=== PATIENT | male | born 1935 | race Caucasian/White ===

== ENCOUNTER 2018-12-11 05:20 | Inpatient (IN) | payer MEDICARE, BC ==
[2018-12-10 16:28] VITALS: BMI 20.4
[2018-12-11] VITALS (28 sets, daily range): BP systolic 98–152; BP diastolic 46–72; PULSE 63–77; RESP 11–20; Ht 184.2 cm; Wt 66.6 kg
[~2018-12-11] VITALS: Ht 184.2 cm; Wt 66.6 kg
[~2018-12-11 05:20] MED LIST: SIMV5TAB14 PO; TRAZ-111 PO
--- NOTE | 2018-12-11 05:31 | HPN ---
Date/Time of Note Date/Time of Note DATE: 12/11/18 TIME: 05:31 Interval H&P Admission Note Pt. seen H&P reviewed: No system changes URSZULA JUSTIN MD Dec 11, 2018 05:31
--- NOTE | 2018-12-11 05:35 | OPR ---
Date/Time of Note Date/Time of Note DATE: 12/11/18 TIME: 05:31 Operative Report Procedure Date: Dec 11, 2018 Preoperative Diagnosis Right shoulder rotator cuff tear arthropathy Postoperative Diagnosis 1. Right shoulder rotator cuff tear arthropathy 2. Right shoulder acromioclavicular joint arthritis 3. Right shoulder secondary arthritis Operation/Procedure Performed 1. Right reverse total shoulder replacement 2. Right open distal clavicle excision 3. Right shoulder injection of PRP Surgeon see signature line Unit Aide Brayan Jain PA-C Second Unit Aide: KITA ROME Anesthesia Type: general Estimated Blood Loss: 100 - 150 ml's Transfusion none Specimen None Grafts/Implants See operative note Complications none Pt Condition Post Procedure: stable Disposition: PACU Procedure Description MECHANICAL ENGINEERING PROFESSOR SURGEON: Brayan Jain PA-C was asked to be present for this case at my request. Assistance was necessary as a result of the highly technical nature of this operation. When performing an open total shoulder replacement, it is critical to have a trained assistant to the ceo who is an expert in handling the extremity and assisting the surgeon in tasks such as manipulation of the arm, protection of the neurovascular structures and positioning the implants. This assistance cannot be performed by a earth science technician, as it is considered an integral part of the procedure and the assistant to the ceo should be compensated for their time. PROCEDURE IN DETAIL: Following the administration of general anesthesia supplemented with a peripheral nerve block for postoperative pain control, the patient was examined under anesthesia. The antecubital fossa was then prepped and 60 cc of blood were aspirated. The blood was then subsequently given to the textile machinery sales representative from the company to prepare the PRP solution. Examination of the [] shoulder revealed very significant stiffness including a forward flexion of about 100 degrees and abduction of 80 degrees maximal external rotation 60 degrees with severe crepitus. There was anteroposterior escape of the humeral head, also. The patient was then placed in the beach chair position. Sterile prep and drape was then undertaken. An extended deltopectoral incision was then carried through the interval exposing the conjoined tendon and retracting it medially. The superior aspect of the joint was then evaluated. Significant osteophytes were noted in the acromioclavicular joint. The acromioclavicular joint capsule was then entered and the distal clavicle skeletonized for a distance of 10 mm. Severe arthritic changes were noted. An osteotome was then used to resect 10 mm of the distal clavicle. Good decompression was confirmed. The AC joint was irrigated and closed using a #2 interrupted suture. The subscapularis was noted to be partially disrupted superiorly. Severe arthritic changes were noted with very large peripheral osteophytes. The superior rotator cuff was torn and retracted. The biceps tendon was tenodesed to the bicipital groove after finding significant degenerative changes. A humeral head osteotomy was then created in the appropriate degree of version and inclination. The humerus was retracted and the glenoid was exposed. Peripheral osteophytes were removed and a complete capsulectomy performed. The central canal of the glenoid was then entered and prepared for a size standard Depuy baseplate. A standard Depuy baseplate was then applied with four peripheral screws and solid fixation. A 38 mm glenosphere was then applied, with solid fixation. The humerus was then reamed and prepared for a 14 mm humeral component with a standard metaphyseal component with a 9 mm liner. The humeral canal was irrigated and the PRP solution was implanted within the humeral canal. The actual components were implanted with solid fixation. The arm was taken through full range of motion with no evident instability. The joint was then thoroughly irrigated, the deep tissues were approximated using #1 suture followed by closure of the deep layer using 2-0 Monocryl. The skin was closed using 4-0 Monocryl suture, and a Prenio dressing. An Ultrasling was then applied. The patient was awakened and transported to the recovery room in stable condition. Estimated blood loss for this procedure was 150 cc. Radiographs will be obtained in the recovery room. URSZULA JUSTIN MD Dec 11, 2018 05:35
--- NOTE | 2018-12-11 05:46 | PDOCDIS ---
Discharge Instructions DIAGNOSIS Discharge Diagnosis Rotator cuff tear arthropathy CONDITION [id number] Patient Condition: Jivww4i Good HOME CARE INSTRUCTIONS: [id number] Diet Instructions: Tshwi2y Regular ACTIVITY: [id number] Activity Restrictions: Qcczo7s Slowly Increase Activity Keep Limb Elevated [id number] Bathing Restrictions: Mfgoo2a Shower FOLLOW UP/APPOINTMENTS Follow-up Plan 2 weeks in the office SCHOOL/WORK RELEASE May return to School/Work with: With Restrictions School/Work Release Comment: 5 pound tabletop usage for 6 weeks URSZULA JUSTIN MD Dec 11, 2018 05:46
[2018-12-11] MEDS ORDERED: TRANEXAMIC ACID 1GM/100ML(PMX) 100 ML IVPB SCH (06:00)
[2018-12-11] MEDS ORDERED: GABAPENTIN 300 MG CAP PO SCH ×2 (06:00→21:00)
[2018-12-11] MEDS ORDERED: DEXAMETHASONE 1 MG TAB PO SCH (06:00)
[2018-12-11] MEDS ORDERED: BUPIVACAINE 0.5% (SDV) 30 ML, morphine SULFATE (PF) 8 MG, EPINEPHrine 0.3 MG, KETOROLAC... IRR SCH ×7 (06:00)
[2018-12-11] MEDS ORDERED: CEFAZOLIN 2 GM/50 ML (PMX) 50 ML IVPB SCH (06:00)
[2018-12-11] MEDS: LACTATED RINGER'S 1,000 ML IV* SCH (06:06)
--- NOTE | 2018-12-11 06:26 | PREOPHP ---
DATE OF ADMISSION: 12/11/2018 HISTORY OF PRESENT ILLNESS: The patient is an 83-year-old male, admitted on 12/11/2018 for right total shoulder replacement by Dr. Urszula Glez. This gentleman has a long history of right shoulder pain. He has been seen in the past by other orth opedist, MRI reveals glenohumeral arthritis, he was treated with physical therapy, cortisone injectio ns, topical gel with no significant improvement. 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 PAST MEDICAL HISTORY: The patient has a history of hypercholesterolemia treated with a statin, and a denocarcinoma of the lung, treated with right upper lobectomy several years ago. The patient also avalos d a Dupuytren's contracture surgery and a remote left-sided brachial plexus injury. MEDICATIONS: 1. Atorvastatin. 2. Baby aspirin, which has been stopped. 3. Trazodone at bedtime. SOCIAL HISTORY: The patient has a past history of cigarette smoking, but quit many years ago and sam garcias 1 glass of wine several times weekly. No recreational drugs. FAMILY HISTORY: Noncontributory. REVIEW OF SYSTEMS: The patient has had an extensive recent workup for weight loss including CAT scan s, blood test, colonoscopy. No cause has been found. He denies headaches, dizzy spells, fainting, d ouble vision, blurring of vision, tinnitus, trouble swallowing. He has some decreased exercise dotty ance because of his prior lung surgery. He denies chest pain, palpitations, PND, orthopnea or edema. No nausea, vomiting, diarrhea, change in bowel habits. No bleeding. Nocturia x1. No significant dermatological or neurological problems. PHYSICAL EXAMINATION: GENERAL: The patient is a well-developed, thin male in no acute distress. HEENT: Unremarkable. LUNGS: Dullness at the right base to percussion. VITAL SIGNS: The patient's weight is stable at 147. CHEST: Lung schroeder are clear. HEART: Regular sinus rhythm, I/ systolic murmur along the left sternal border. ABDOMEN: No organomegaly or masses. RECTAL: Shows a 1+ prostate. Stool negative for occult blood. NEUROLOGIC: Physiologic. SKIN: No rashes. MUSCULOSKELETAL: Decreased range of motion and pain in the right shoulder. IMPRESSION: 1. Arthritis, right shoulder, medically cleared for proposed surgery. 2. Remote history of lung cancer. PLAN: The patient is medically cleared for the above procedure. LAUREN DE LA VEGA MD DICTATING FOR URSZULA HOBBS Dictated By: URSZULA GLEZ MD CG/NTS Conf#: [id number] DID#: [id number] CC: URSZULA GLEZ MD;*EndCC*
[2018-12-11] MEDS ORDERED: POLYMYXIN/BACITRACIN 1L IRRIG ONE (06:44)
[2018-12-11] MEDS ORDERED: CA CHLORIDE 10% 10 ML SYRINGE ONE (06:44)
[2018-12-11] MEDS ORDERED: THROMBIN 5000 UNIT VIAL ONE (06:44)
--- NOTE | 2018-12-11 06:55 | PREAC ---
Date/Time of Note Date/Time of Note DATE: 12/11/18 TIME: 06:53 Anesthesia Eval and Record Evaluation Time Pre-Procedure Interview DATE: 12/11/18 TIME: 06:53 Age 83 Sex male NPO: 8 hrs Preoperative diagnosis right shoulder pain Planned procedure R total shoulder replacement Past Medical History Past Medical History: Includes Cardio: Dyslipidemia Pulm: Smoking Hx, Other (RULobectomy for CA, now free and 40 years ago) Psych: Anxiety Surgery & Anesthesia Issues No known issue Meds Anticoagulation: No Beta Antonio within 24 hr: No Reason Beta Antonio not given: Pt. not on B-Antonio Reported Medications Simvastatin* (Simvastatin*) 5 Mg Tablet, 20 MG PO QHS, #30 TAB 12/10/18 Trazodone Hcl* (Trazodone Hcl*) 50 Mg Tablet, 25 MG PO QHS, #30 TAB 12/10/18 Current Medications Cefazolin Sodium/ Dextrose 50 ml @ 100 mls/hr PRE-OP IVPB ; Start 12/11/18 at 06:00; Stop 12/11/18 at 16:00 Tranexamic Acid 100 ml @ 200 mls/hr Pre-op IVPB ; Start 12/11/18 at 06:00; Stop 12/11/18 at 16:00 Bupivacaine HCl/ Morphine Sulfate/ Epinephrine/ Ketorolac Tromethamine/ Clonidine/Sodium Chloride/ Vancomycin HCl INTRA-OP IRR ; Start 12/11/18 at 06:00; Stop 12/11/18 at 16:00 Dexamethasone (Decadron) 2 mg PREOP PO Last administered on 12/11/18at 06:06; Admin Dose 2 MG; Start 12/11/18 at 06:00; Stop 12/11/18 at 16:00 Gabapentin (Neurontin) 300 mg ONCE PO Last administered on 12/11/18at 06:06; Admin Dose 300 MG; Start 12/11/18 at 06:00; Stop 12/11/18 at 16:00 Lactated Ringer's 1,000 ml @ 20 mls/hr Q24H IV* Last administered on 12/11/18at 06:06; Admin Dose 20 MLS/HR; Start 12/11/18 at 06:00; Stop 12/13/18 at 07:59 Meds reviewed: Yes Allergies Coded Allergies: No Known Allergy (Unverified , 12/11/18) Allergies Reviewed: Yes Labs/Studies Labs Reviewed: Reviewed by anesthesiologist test: N/A Studies: ECG, CXR Pre-procedure Exam Last vitals Vital Signs Date Temp Pulse Resp B/P (MAP) Pulse Ox O2 O2 Flow FiO2 Time Delivery Rate 12/11/18 97.3 77 18 152/72 99 Room Air 06:09 (98) Airway: Adequate mouth opening, Adequate thyromental dist Mallampati: Mallampati III Teeth: Normal Lung: Normal Heart: Normal ASA Physical Status ASA physical status: 3 Emergency: None Planned Anesthetic General/MAC: ETT Planned Pain Management Single shot nerve block, Parenteral pain med, Local by surgeon Pre-operative Attestations Prior to commencing anesthesia and surgery, the patient was re-evaluated, there was verification of: *The patient's identity *The results of appropriate recent lab work and preoperative vital signs *The above evaluation not changing prior to induction *Anesthetic plan, risk benefits, alternative and complications discussed with patient/family; questions answered; patient/family understands, accepts and wishes to proceed. IVANA COELHO MD Dec 11, 2018 06:55
[2018-12-11] MEDS ORDERED: FENTAnyl 50 MCG/ML VIAL ONE (06:58)
[2018-12-11] MEDS ORDERED: MIDAZOLAM 1 MG/ML 2 ML INJ ONE (06:59)
[2018-12-11] MEDS ORDERED: PROPOFOL 20 ML ONE ×2 (06:59→08:00)
[2018-12-11] MEDS ORDERED: LORAZEPAM 2 MG INJ IV PRN (07:00)
[2018-12-11] MEDS ORDERED: CEFAZOLIN 1 GM INJ ONE (07:00)
[2018-12-11] MEDS ORDERED: LEVALBUTEROL (NEB) 1.25 MG/0.5 ML AMP HHN PRN (07:00)
[2018-12-11] MEDS ORDERED: LABETALOL HCL 20MG INJ IV PRN (07:00)
[2018-12-11] MEDS ORDERED: METOCLOPRAMIDE 10 MG INJ ONE (07:00)
[2018-12-11] MEDS ORDERED: FENTAnyl 50 MCG/ML VIAL IV PRN ×2 (07:00)
[2018-12-11] MEDS ORDERED: MIDAZOLAM 1 MG/ML 2 ML INJ IV PRN (07:00)
[2018-12-11] MEDS ORDERED: ONDANSETRON 4 MG INJ IV PRN ×2 (07:00→09:00)
[2018-12-11] MEDS ORDERED: SUGAMMADEX SODIUM 200 MG/2 ML VIAL IV ONE (07:00)
[2018-12-11] MEDS ORDERED: IPRATROPIUM (NEB) 0.5 MG/2.5 ML AMP HHN PRN (07:00)
[2018-12-11] MEDS ORDERED: ROCURONIUM 50 MG INJ ONE ×2 (07:00→08:01)
[2018-12-11] MEDS ORDERED: DESFLURANE 15 MIN ONE (07:00)
[2018-12-11] MEDS ORDERED: hydrALAzine 20 MG INJ IV PRN (07:00)
[2018-12-11] MEDS ORDERED: MEPERIDINE 25 MG INJ IV PRN (07:00)
[2018-12-11] MEDS ORDERED: DIPHENHYDRAMINE 50 MG INJ IV PRN ×2 (07:00→09:00)
[2018-12-11] MEDS ORDERED: DEXAMETHASONE 4 MG/ML 5 ML INJ ONE (07:00)
[2018-12-11] MEDS ORDERED: ONDANSETRON 4 MG INJ ONE (07:00)
[2018-12-11] MEDS ORDERED: GLYCOPYRROLATE 0.4 MG INJ ONE (07:00)
[2018-12-11] MEDS ORDERED: HYDROmorphONE 1 MG/5 ML IV SYRINGE IV PRN ×3 (07:00)
[2018-12-11] MEDS ORDERED: NEOSTIGMINE 3 MG/3 ML SYRINGE ONE (07:00)
[2018-12-11] MEDS ORDERED: ROPIVACAINE 0.5 % 30 ML VIAL ONE (07:02)
[2018-12-11] MEDS ORDERED: TRANEXAMIC ACID 1GM/100ML(PMX) 100 ML ONE (07:04)
[2018-12-11] MEDS ORDERED: SUCCINYLCHOLINE CHLORIDE 100 MG/5 ML SYG IV ONE (08:01)
[2018-12-11] MEDS ORDERED: LIDOCAINE 2% (SDV) 5 ML INJ ONE (08:01)
[2018-12-11] MEDS ORDERED: KETOROLAC 15 MG INJ IV PRN (09:00)
[2018-12-11] MEDS ORDERED: LOPERAMIDE 2 MG CAP PO PRN (09:00)
[2018-12-11] MEDS ORDERED: NACL 0.9% 3 ML SYG IV SCH (09:00)
[2018-12-11] MEDS ORDERED: TRANEXAMIC ACID 1GM/100ML(PMX) 100 ML IVPB ONE (09:00)
[2018-12-11] MEDS ORDERED: MAGNESIUM HYDROXIDE 30ML CUP PO PRN (09:00)
[2018-12-11] MEDS ORDERED: oxyCODONE 5 MG TAB PO PRN ×2 (09:00)
[2018-12-11] MEDS ORDERED: HYDROmorphONE 1 MG/ML SYG IV PRN (09:00)
[2018-12-11] MEDS ORDERED: ZOLPIDEM 5 MG TAB PO PRN (09:00)
[2018-12-11] MEDS: CEFAZOLIN 1 GM/50 ML (PMX) 50 ML IVPB SCH ×2 (09:10→17:54)
[2018-12-11] MEDS: DEXAMETHASONE 2 MG TAB PO SCH ×2 (11:27→17:54)
[2018-12-11] MEDS: SENNA/DOCUSATE NA (8.6MG/50MG) TAB PO SCH ×2 (11:28→20:52)
[2018-12-11] MEDS: ACETAMINOPHEN 500 MG TAB PO SCH ×2 (11:30→17:59)
[2018-12-11] MEDS ORDERED: traZODone 50 MG TAB PO SCH (21:00)
[2018-12-11] MEDS ORDERED: ATORVASTATIN 10 MG TAB PO SCH (21:00)
--- NOTE | 2018-12-11 23:43 | PAC ---
Date/Time of Note Date/Time of Note DATE: 12/11/18 TIME: 23:43 Post-Anesthesia Notes Post-Anesthesia Note Last documented vital signs Vital Signs Date Temp Pulse Resp B/P (MAP) Pulse Ox O2 O2 Flow FiO2 Time Delivery Rate 12/11/18 97.0 75 18 133/63 94 20:03 (86) 12/11/18 Nasal 14:44 Cannula 12/11/18 2.0 14:15 Activity: WNL Respiratory function: WNL Cardiovascular function: WNL Mental status: Baseline Pain reasonably controlled: Yes Hydration appropriate: Yes Nausea/Vomiting absent: Yes IVANA COELHO MD Dec 11, 2018 23:43
[2018-12-12] MEDS: DEXAMETHASONE 2 MG TAB PO SCH ×2 (00:28→05:39)
[2018-12-12] MEDS: ACETAMINOPHEN 500 MG TAB PO SCH ×2 (00:28→05:39)
[2018-12-12] MEDS: CEFAZOLIN 1 GM/50 ML (PMX) 50 ML IVPB SCH (00:28)
[2018-12-12 00:45] VITALS: BP 115/70; PULSE 80; RESP 20
--- NOTE | 2018-12-12 04:40 | PN ---
Date/Time of Note Date/Time of Note DATE: 12/12/18 TIME: 04:39 Subjective Awake and alert with no complaints. Objective Vitals Vital Signs Date Temp Pulse Resp B/P (MAP) Pulse Ox O2 O2 Flow FiO2 Time Delivery Rate 12/12/18 98.0 80 20 115/70 99 00:45 (85) 12/11/18 Nasal 14:44 Cannula 12/11/18 2.0 14:15 Intake and Output 12/11/18 12/11/18 12/12/18 1515:00 23:00 07:00 IntakeIntake Total 1050 ml 1130 ml 350 ml OutputOutput Total 50 ml 700 ml BalanceBalance 1000 ml 430 ml 350 ml Wound is clean and dry. Neurologically intact. No signs of DVT. Medications Medications Current Medications Lactated Ringer's 1,000 ml @ 20 mls/hr Q24H IV* Last administered on 12/11/18at 06:06; Admin Dose 20 MLS/HR; Start 12/11/18 at 06:00; Stop 12/13/18 at 07:59 Trazodone HCl (Desyrel) 25 mg QHS PO Last administered on 12/11/18at 20:51; Admin Dose 25 MG; Start 12/11/18 at 21:00 Atorvastatin Calcium (Lipitor) 10 mg DAILY@21 PO Last administered on 12/11/18at 20:51; Admin Dose 10 MG; Start 12/11/18 at 21:00 Senna/Docusate Sodium (Senokot-S) 1 tab BID PO Last administered on 12/11/18at 20:52; Admin Dose 1 TAB; Start 12/11/18 at 09:00 Simethicone (Mylicon) 80 mg TID PRN PO .GAS; Start 12/11/18 at 09:00 Magnesium Hydroxide (Milk Of Mag) 30 ml BID PRN PO .CONSTIPATION; Start 12/11/18 at 09:00 Loperamide HCl (Imodium Cap) 2 mg Q6H PRN PO .DIARRHEA; Start 12/11/18 at 09:00 Dexamethasone (Decadron) 2 mg Q6 PO Last administered on 12/12/18at 00:28; Admin Dose 2 MG; Start 12/11/18 at 12:00; Stop 12/12/18 at 06:01 Gabapentin (Neurontin) 300 mg HS PO Last administered on 12/11/18at 20:52; Admin Dose 300 MG; Start 12/11/18 at 21:00 Acetaminophen (Tylenol Tab) 500 mg Q6 PO Last administered on 12/12/18at 00:28; Admin Dose 500 MG; Start 12/11/18 at 12:00 Oxycodone HCl (Roxicodone) 15 mg Q4H PRN PO .PAIN; Start 12/11/18 at 09:00 Oxycodone HCl (Roxicodone) 10 mg Q4H PRN PO .PAIN; Start 12/11/18 at 09:00 Oxycodone HCl (Roxicodone) 5 mg Q4H PRN PO .PAIN Last administered on 12/12/18at 00:36; Admin Dose 5 MG; Start 12/11/18 at 09:00 Hydromorphone HCl (Dilaudid) 1 mg Q4H PRN IV .BREAKTHROUGH PAIN; Start 12/11/18 at 09:00 Ketorolac Tromethamine (Toradol) 15 mg Q6H PRN IV .PAIN; Start 12/11/18 at 09:00 Ondansetron HCl (Zofran Inj) 4 mg Q6H PRN IV NAUSEA/VOMITING; Start 12/11/18 at 09:00 Diphenhydramine HCl (Benadryl) 25 mg Q6H PRN IV .PRURITUS; Start 12/11/18 at 09:00 Zolpidem Tartrate (Ambien) 10 mg HS PRN PO .INSOMNIA; Start 12/11/18 at 09:00 IV Flush (NS 3 ml) 3 ml per protocol IV ; Start 12/11/18 at 09:00 VTE Prophylaxis Risk score (from Nsg)>0 risk: 3 SCD applied (from Nsg): Yes Lines/Catheters IV Catheter Type: Saline Lock De Guzman in Place: No Assessment/Plan Assessment/Plan Assessment: Status post total shoulder Plan: Begin PT this morning discharge after URSZULA JUSTIN MD Dec 12, 2018 04:40
--- NOTE | 2018-12-12 04:40 | DS ---
Date/Time of Note Date/Time of Note DATE: 12/12/18 TIME: 04:40 Discharge Summary Admission/Discharge Info Admit Date/Time Dec 11, 2018 at 05:20 Discharge Date/Time 12/12/2018 Discharge Diagnosis Rotator cuff tear arthropathy Patient Condition: Good Hospital Course Admitted and underwent uncomplicated procedure. Postop day 1 he is comfortable, to be discharged after PT Home Meds Reported Medications Simvastatin* (Simvastatin*) 5 Mg Tablet, 20 MG PO QHS, #30 TAB 12/10/18 Trazodone Hcl* (Trazodone Hcl*) 50 Mg Tablet, 25 MG PO QHS, #30 TAB 12/10/18 Follow-up Plan 2 weeks in the office Primary Care Provider Not On Staff Doctor URSZULA JUSTIN MD Dec 12, 2018 04:40
[2018-12-12] MEDS: LACTATED RINGER'S 1,000 ML IV* SCH (06:00)
[2018-12-12] MEDS: oxyCODONE 5 MG TAB PO PRN ×2 (06:10→10:13)
[2018-12-12 08:19] VITALS: BP 125/60; PULSE 81; RESP 20
[2018-12-12] MEDS: SENNA/DOCUSATE NA (8.6MG/50MG) TAB PO SCH (08:34)
== END 2018-12-12 11:20 | disposition home or self-care (01) | DRG 483 ==
LOC: REC 05:20 → EDSTATUS 07:00 → MS1 10:00
PROVIDERS: ADMIT Orthopaedic Surgery; ATTEND Orthopaedic Surgery
PROC: 0LS30ZZ Reposition Right Upper Arm Tendon, Open Approach (ICD-10-PCS; 2018-12-11)
PROC: 0RRJ00Z Replacement of Right Shoulder Joint with Reverse Ball and Socket Synthetic Substitute, Open Approach (ICD-10-PCS; principal; 2018-12-11 07:00)
DX: M19.011 Primary osteoarthritis, right shoulder (principal); M75.101 Unspecified rotator cuff tear or rupture of right shoulder, not specified as traumatic; E78.00 Pure hypercholesterolemia, unspecified; Z85.118 Personal history of other malignant neoplasm of bronchus and lung; Z87.891 Personal history of nicotine dependence
CPT/HCPCS: 86999; 88304; 88311; 97161; C1776; J0171; J0690; J0735; J1100; J1885; J2250; J2274; J2405; J2710; J2765; J2795; J3010; J3370; J7120